=== PATIENT | female | born 1990 | race Caucasian/White ===

== ENCOUNTER 2017-03-24 16:18 | Emergency (ER) | payer OTHER ==
[~2017-03-24] VITALS: Ht 157.5 cm; Wt 81.6 kg
[2017-03-24 16:33] VITALS: BP 135/70
[2017-03-24] MEDS ORDERED: TRIA15OI TP (16:53)
[2017-03-24] MEDS ORDERED: FAMO-63 PO (16:53)
[2017-03-24] MEDS ORDERED: HYDR25TA PO (16:53)
[2017-03-24] MEDS ORDERED: PRED-220 PO (16:53)
--- NOTE | 2017-03-24 16:53 | PHYS DOC ---
Past Medical History Past Medical History: No Pertinent History Past Surgical History: Cholecystectomy, Other Additional Past Surgical Histo: left elbow, D&C Alcohol Use: None Drug Use: None Adult General Chief Complaint Chief Complaint: SKIN PROBLEM HPI HPI Patient is a 27 year old female who presents with who presents with a pruritic rash to bilateral upper extremities that began a week ago after working in the garden. She has tried Benadryl and calamine lotion with no relief. Review of Systems Review of Systems Constitutional: Denies fever or chills [] Eyes: Denies change in visual acuity, redness, or eye pain [] HENT: Denies nasal congestion or sore throat [] Musculoskeletal: Denies back pain or joint pain [] Integument: rash Neurologic: Denies headache, focal weakness or sensory changes [] Endocrine: Denies polyuria or polydipsia [] Allergies Allergies Allergies Coded Allergies Type Severity Reaction Last Updated Verified No Known Drug Allergies 12/18/14 No Physical Exam Physical Exam Constitutional: Well developed, well nourished, no acute distress, non-toxic appearance. [] HENT: Normocephalic, atraumatic, bilateral external ears normal, oropharynx moist, no oral exudates, nose normal. [] Skin: Bilateral upper extremities with mild amount of linear erythematous rash suspicious of contact dermatitis Back: No tenderness, no CVA tenderness. [] Extremities: No tenderness, no cyanosis, no clubbing, ROM intact, no edema. [] Neurologic: Alert and oriented X 3, normal motor function, normal sensory function, no focal deficits noted. [] Psychologic: Affect normal, judgement normal, mood normal. [] Current Patient Data Vital Signs Vital Signs Date Time Temp Pulse Resp B/P (MAP) Pulse Ox O2 Delivery O2 Flow Rate FiO2 03/24/17 16:33 98.8 85 16 100 Room Air 98.8 EKG EKG [] Radiology/Procedures Radiology/Procedures [] Course & Med Decision Making Course & Med Decision Making Pertinent Labs and Imaging studies reviewed. (See chart for details) Patient has contact dermatitis rash. Discharged with triamcinolone cream, Benadryl, Atarax, prednisone, and Pepcid. Follow-up with grit blaster in 2 weeks. Dragon Disclaimer Dragon Disclaimer This electronic medical record was generated, in whole or in part, using a voice recognition dictation system. Departure Departure Impression: Primary Impression: Contact dermatitis Disposition: HOME, SELF-CARE Condition: STABLE Referrals: NO PCP (PCP) CANDY DOWNS MD follow up with your doctor in one week Patient Instructions: Contact Dermatitis Additional Instructions: You were seen for contact dermatitis rash. Use the prescribed medicines as ordered. Follow-up with your doctor or grit blaster in 2 weeks. Scripts Triamcinolone Acetonide (TRIAMCINOLONE ACETONIDE 0.1% OINT) 15 Gm Oint...g. 1 [place] TP BID for WOUND CARE, #1 TUBE MIX WITH EUCERIN DIRECTED BY PHYSICIAN Prov: MICHAEL GOLDEN APRN 03/24/17 Hydroxyzine Hcl (HYDROXYZINE HCL) 25 Mg Tablet 1 TAB PO TID, #30 TAB Prov: MICHAEL GOLDEN APRN 03/24/17 Famotidine (PEPCID) 20 Mg Tablet 20 MG PO DAILY, #14 TAB Prov: MICHAEL GOLDEN APRN 03/24/17 Prednisone (PREDNISONE) 10 Mg Tablet 10 MG PO UD for PREDNISONE TAPER, #39 TAB 0 Refills Take 3 tablets by mouth twice a day for 3 days, then take 2 tablets by mouth twice a day for 3 days, then take 1 tablet by mouth twice a day for 3 days, then take 1 tablet by mouth daily x 3 days, then stop. Prov: MICHAEL GOLDEN APRN 03/24/17 Problem Qualifiers Primary Impression: Contact dermatitis Contact dermatitis type: unspecified Contact dermatitis trigger: unspecified trigger Qualified Codes: L25.9 - Unspecified contact dermatitis, unspecified cause MICHAEL GOLDEN APRN Mar 24, 2017 16:53
== END 2017-03-24 17:00 | disposition home or self-care (01) ==
LOC: ER 16:18
DX: L25.9 Unspecified contact dermatitis, unspecified cause (principal)
CPT/HCPCS: 99283